=== PATIENT | male | born 1995 | race Caucasian/White ===

== ENCOUNTER 2020-03-21 20:28 | Emergency (ER) | payer BC, SELFPAY ==
[2020-03-21 20:47] VITALS: BP 146/88; PULSE 102; RESP 21; TEMP 37.1; O2SAT 96; BMI 37.5
[2020-03-21 20:53] LABS: UTC Strep Screen (Rapid) Negative (Negative)
--- NOTE | 2020-03-21 20:53 | HMH.EDUTC ---
[facility] [place] Disposition Clinical Impression: Viral upper respiratory infection Disposition: Home, Self-Care Condition on Discharge: Good Instructions: Preventing the Spread of Coronavirus Discharge Instructions, Sore Throat, DI for Headache Additional Instructions: *Monitor Temp, Over the counter Motrin or Tylenol as directed/as needed Tylenol every 4 hours and Motrin every 6 hours (as long as your family doctor has told you that you can take it) for fever or pain. and straight to ER if unable to lower temp less than 101.0 after medication given *Warm salt water gargles may help to soothe the throat *Throat Lozenges *Warm fluids like tea with honey may help to soothe the throat *Sleep elevated *Humidifier/Vaporizer Go home and self quarantine until your test results back and are negative You was given a handout on instructions for quarantine Do not be out in public and no work until negative covid results Your throat swab was sent for culture. Those results are typically sent to your primary care. Be sure to follow up in 2-3 days with your family doctor/primary care physician if no improvement so they can review those result and treat if necessary. If you don?t have a primary care doctor, I recommend you get one but in the mean time, you will have to return to a walk in clinic Follow up IMMEDIATELY for new or worsening symptoms or no Noticeable improvement over the next 48-72 hours. 911 for difficulty breathing or swallowing Call back to the [facility] [place] on Tuesday to see if your results are back Referrals: Provider,Referral, [Primary Care Provider] - As needed Forms: Work/School Release Time of Disposition: 21:01 Medical Decision Making - Saran Inquiry Pt receiving controlled substance: No Saran was queried for this patient: No Vital Signs: 03/21/20 20:47 Temperature 98.7 F Temperature Source Oral Pulse Rate [Right Brachial] 102 H Respiratory Rate 21 Blood Pressure [Right Arm] 146/88 H Blood Pressure Mean [Right Arm] 107 Blood Pressure Source [Right Arm] Automatic Cuff Blood Pressure Position [Right Arm] Sitting 02 Sat by Pulse Oximetry 96 Oxygen Delivery Method Room Air - Lab Data Lab results reviewed: Yes: I reviewed the patient's lab results. Lab Results 03/21/20 20:34: Strep Scn Rapid Clinic Negative Orders (Tests/Meds): ORDERS Category Date Time Status SARS-CoV-2, [place] ([place]) Stat Lab 03/21/20 20:47 Ordered [facility] [place] HPI - General Stated complaint: sore throat and headache/covid test for work Time Seen by Provider: 03/21/20 20:53 Mode of Arrival: Ambulatory Source of Information: Patient Limitations: No Limitations Description of Symptoms (Recalled from Triage Doc. by RN): PATIENT C/O SORE THROAT AND COUGH X 3 DAYS; HIS WORK IS REQUESTING A COVID TEST HEENT Symptoms (Recalled from RN notes): Yes Resp Symptoms (Recalled from RN notes): Yes Skin Symptoms (Recalled from RN notes): No MS Symptoms (Recalled from RN notes): No Functional Status (Recalled from RN notes): WNL - History of Present Illness Provider Complaint: Patient states that he has been having sore throat, cough and drainage along with headache on and off for about 3 days States that he hasnt had fever that he is aware of States that his work sent him to have him get checked for COVID and said he couldnt return to work until he has had a negative test - Related Data Allergies Allergy/AdvReac Type Severity Reaction Status Date / Time No Known Allergies Allergy Verified 09/29/17 19:38 - Worker's Comp Is this a Worker's Comp case?: No [facility] History - Hepatitis A Screen Drug use history?: No High risk sexual behaviors?: No History of sexually transmitted infection?: No Currently employed?: No Childcare worker?: No Do you have indoor plumbing?: Yes Do you have electricity?: Yes Attestation statement:: This patient has been screened for Hepatitis A risk factors. I have reviewed the patient's past medical history:
[2020-03-21 21:07] VITALS: BP 146/88; PULSE 102; RESP 21; TEMP 37.1; O2SAT 96
[2020-03-23 16:10] LABS: Covid-19 Nasal PCR Sendout UK Not Detected
== END 2020-03-21 21:08 | disposition home or self-care (01) ==
PROVIDERS: Emergency Provider Nurse Practitioner
DX: Z20.828 Contact with and (suspected) exposure to other viral communicable diseases (principal); J06.9 Acute upper respiratory infection, unspecified
CPT/HCPCS: 87880; 99202; U0003

== ENCOUNTER 2020-04-28 18:44 | Emergency (ER) | payer BC, SELFPAY ==
[2020-04-28 19:10] VITALS: BMI 38.5
[2020-04-28 19:16] VITALS: BP 126/76; PULSE 90; RESP 20; TEMP 36.8; O2SAT 97; BMI 38.5
[2020-04-28 19:26] LABS: UTC Strep Screen (Rapid) Negative (Negative)
--- NOTE | 2020-04-28 19:40 | HMH.EDUTC ---
[facility] [place] Impression: Viral syndrome Disposition: Home, Self-Care Condition on Discharge: Good Instructions: DI for Viral Syndrome, Preventing the Spread of Coronavirus Discharge Instructions Additional Instructions: Drink plenty of fluids. Take tylenol or ibuprofen for pain or fever. Follow up with your regular doctor. GO TO THE ER FOR ANY WORSENING SYMPTOMS FOLLOW THE DIRECTIONS ON THE COVID-19 HAND OUT THAT WE GAVE YOU REGARDING SELF-ISOLATION UNTIL YOU KNOW YOUR COVID-19 RESULTS Referrals: PCP,No [Primary Care Provider] - Forms: Work/School Release Time of Disposition: 19:50 Medical Decision Making - Medical Records Medical records reviewed: No: I reviewed the patient's medical records. - Saran Inquiry Pt receiving controlled substance: No Vital Signs: 04/28/20 19:16 04/28/20 19:57 Temperature 98.3 F 98.3 F Temperature Source Oral Pulse Rate 90 Pulse Rate [Right Brachial] 90 Respiratory Rate 20 20 Blood Pressure 126/76 Blood Pressure [Right Arm] 126/76 Blood Pressure Mean [Right Arm] 92 Blood Pressure Source [Right Arm] Automatic Cuff Blood Pressure Position [Right Arm] Sitting 02 Sat by Pulse Oximetry 97 Oxygen Delivery Method Room Air - Lab Data Lab Results 04/28/20 19:12: Strep Scn Rapid Clinic Negative Orders (Tests/Meds): ORDERS Category Date Time Status SARS-CoV-2, [place] Stat Lab 04/28/20 19:20 Received Strep Screen Confirmation Stat Micro 04/28/20 19:12 [place] [facility] [place] - General Stated complaint: COVID TEST Time Seen by Provider: 04/28/20 19:40 Mode of Arrival: Ambulatory Source of Information: Patient Limitations: No Limitations Description of Symptoms (Recalled from Triage Doc. by RN): PATIENT C/O SORE THROAT, HEADACHE SINCE TUESDAY. STATES THERE WAS A CONFIRMED COVID CASE AT HIS WORKPLACE AND IS REQUESTING A TEST HEENT Symptoms (Recalled from RN notes): Yes Resp Symptoms (Recalled from RN notes): No Skin Symptoms (Recalled from RN notes): No MS Symptoms (Recalled from RN notes): No Functional Status (Recalled from RN notes): WNL - History of Present Illness Provider Complaint: He states that he started feeling kind of bad yesterday. Since then he has ran a fever up to 99.9. He has had a scratchy throat. He denies any cough, chest pain or shortness of breath. - Related Data Allergies Allergy/AdvReac Type Severity Reaction Status Date / Time No Known Allergies Allergy Verified 09/29/17 19:38 - Worker's Comp Is this a Worker's Comp case?: No [facility] History - Hepatitis A Screen Drug use history?: No High risk sexual behaviors?: No History of sexually transmitted infection?: No Currently employed?: No Childcare worker?: No Do you have indoor plumbing?: Yes Do you have electricity?: Yes Attestation statement:: This patient has been screened for Hepatitis A risk factors. I have reviewed the patient's past medical history: Yes Other Surgeries: Yes: No Previous Surgery - Social History Smoking Status: Never smoker Alcohol Intake: never Occupational Status: other Family Hx:: Cancer ROS Obtained: Yes All systems reviewed & no additional complaints - Constitutional Constitutional: Reports chills, Reports fever(s), Reports poor appetite, Reports malaise - Eyes Eyes: Denies eye discharge - ENT Ears, Nose, Mouth, and Throat: Reports as per HPI - Cardiovascular Cardiovascular: Denies chest pain - Respiratory Respiratory: No chest congestion, Yes cough Physical Exam - General General appearance: alert, in no apparent distress - Head Head exam: atraumatic, normocephalic, normal inspection - Eye Eye exam: Present: normal appearance, PERRL, EOMI - ENT ENT exam: Present: normal exam, normal oropharynx, mucous membranes moist, TM's normal bilaterally, normal external ear exam - Neck Neck exam: Present: normal inspection, full ROM, trachea midline. Absent: meningismus, lymphadenop
[2020-04-28 19:57] VITALS: BP 126/76; PULSE 90; RESP 20; TEMP 36.8; O2SAT 97
[2020-04-30 13:09] LABS: Covid-19 Nasal PCR Sendout Lex Not Detected
== END 2020-04-28 19:58 | disposition home or self-care (01) ==
PROVIDERS: Emergency Provider Nurse Practitioner Family
DX: Z20.828 Contact with and (suspected) exposure to other viral communicable diseases (principal); B34.9 Viral infection, unspecified
CPT/HCPCS: 87880; 99202; U0004

== ENCOUNTER 2020-06-27 13:41 | Emergency (ER) | payer BC, SELFPAY ==
[2020-06-27 14:24] VITALS: BP 132/85; PULSE 99; RESP 18; TEMP 36.7; O2SAT 97; BMI 37.5
--- NOTE | 2020-06-27 14:46 | HMH.EDUTC ---
[facility] [place] Clinical Impression: Viral syndrome Disposition: Home, Self-Care Condition on Discharge: Good Instructions: DI for Viral Syndrome Additional Instructions: Drink plenty of fluids. Take tylenol or ibuprofen for pain or fever. Follow up with your regular doctor. GO TO THE ER FOR ANY WORSENING SYMPTOMS FOLLOW THE DIRECTIONS ON THE COVID-19 HAND OUT THAT WE GAVE YOU REGARDING SELF-ISOLATION UNTIL YOU KNOW YOUR COVID-19 RESULTS Referrals: PCP,No [Primary Care Provider] - Forms: Work/School Release Time of Disposition: 15:02 Medical Decision Making - Medical Records Medical records reviewed: No: I reviewed the patient's medical records. - Saran Inquiry Pt receiving controlled substance: No Vital Signs: 06/27/20 14:24 06/27/20 15:24 Temperature 98.0 F 98.0 F Temperature Source Temporal Artery Scan Oral Pulse Rate 99 H Pulse Rate [Radial] 99 H Respiratory Rate 18 18 Blood Pressure 132/85 Blood Pressure [Right Arm] 132/85 Blood Pressure Mean [Right Arm] 100 Blood Pressure Source Automatic Cuff Blood Pressure Source [Right Arm] Automatic Cuff Blood Pressure Position Sitting Blood Pressure Position [Right Arm] Sitting 02 Sat by Pulse Oximetry 97 Oxygen Delivery Method Room Air Room Air [facility] [place] HPI - General Stated complaint: covid test Time Seen by Provider: 06/27/20 14:46 Mode of Arrival: Ambulatory Source of Information: Patient Limitations: No Limitations Description of Symptoms (Recalled from Triage Doc. by RN): wants covid test. vomiting and diarrhea. HEENT Symptoms (Recalled from RN notes): No Resp Symptoms (Recalled from RN notes): No Skin Symptoms (Recalled from RN notes): No MS Symptoms (Recalled from RN notes): No Functional Status (Recalled from RN notes): wnl - History of Present Illness Provider Complaint: He states that he has been having n/v/d for the past 2 days. His work wants him to have a covid test before he can return. He feels better now. - Related Data Allergies Allergy/AdvReac Type Severity Reaction Status Date / Time No Known Allergies Allergy Verified 09/29/17 19:38 - Worker's Comp Is this a Worker's Comp case?: No [facility] History - Hepatitis A Screen Drug use history?: No High risk sexual behaviors?: No History of sexually transmitted infection?: No Currently employed?: No Childcare worker?: No Do you have indoor plumbing?: Yes Do you have electricity?: Yes Attestation statement:: This patient has been screened for Hepatitis A risk factors. I have reviewed the patient's past medical history: Yes Other Surgeries: Yes: No Previous Surgery - Social History Smoking Status: Never smoker Alcohol Intake: never Occupational Status: employed Family Hx:: Cancer ROS Obtained: Yes All systems reviewed & no additional complaints - Constitutional Constitutional: Denies chills, Denies fever(s) - Eyes Eyes: Denies eye discharge - ENT Ears, Nose, Mouth, and Throat: Denies dizziness, Denies otalgia, Denies sore throat - Cardiovascular Cardiovascular: Denies chest pain Physical Exam - General General appearance: alert, in no apparent distress - Head Head exam: atraumatic, normocephalic, normal inspection - Eye Eye exam: Present: normal appearance, PERRL, EOMI - ENT ENT exam: Present: normal exam, normal oropharynx, mucous membranes moist, TM's normal bilaterally, normal external ear exam - Neck Neck exam: Present: normal inspection, full ROM, trachea midline. Absent: meningismus, lymphadenopathy - Chest Chest inspection: Present: normal inspection, symmetric chest wall rise. Absent: tenderness - Respiratory Respiratory exam: Present: normal lung sounds bilaterally. Absent: respiratory distress - Cardiovascular Cardiovascular exam: Present: regular rate, normal rhythm. Absent: JVD - Abdominal Exam Abdominal exam: Present: soft, normal bowel sounds. Absent: distention, tenderness, guardin
[2020-06-27 15:24] VITALS: BP 132/85; PULSE 99; RESP 18; TEMP 36.7; O2SAT 97
== END 2020-06-27 15:24 | disposition home or self-care (01) ==
PROVIDERS: Emergency Provider Nurse Practitioner Family
DX: B34.9 Viral infection, unspecified (principal); Z20.828 Contact with and (suspected) exposure to other viral communicable diseases
CPT/HCPCS: 99201; U0003

== ENCOUNTER 2020-07-16 15:53 | Emergency (ER) | payer BC, SELFPAY ==
[2020-07-16 16:08] VITALS: BP 158/70; PULSE 118; RESP 18; TEMP 36.7; O2SAT 95; BMI 37.5
--- NOTE | 2020-07-16 16:23 | HMH.EDUTC ---
[facility] [place] Impression: Encounter for laboratory testing for COVID-19 virus Disposition: Home, Self-Care Condition on Discharge: Good Instructions: Preventing the Spread of Coronavirus Discharge Instructions Additional Instructions: *Monitor Temp, Over the counter Motrin or Tylenol as directed/as needed Tylenol every 4 hours and Motrin every 6 hours (as long as your family doctor has told you that you can take it) for fever or pain. and straight to ER if unable to lower temp less than 101.0 after medication given *Warm salt water gargles may help to soothe the throat *Throat Lozenges *Warm fluids like tea with honey may help to soothe the throat *Sleep elevated *Humidifier/Vaporizer Follow up IMMEDIATELY for new or worsening symptoms or no Noticeable improvement over the next 48-72 hours. 911 for difficulty breathing or swallowing You was tested for today for COVID19 your test result should be back later this evening, you may call back later this evening to see if your test results are back and the result You was given a handout with instructions for Self Quarantine and Self isolation for while you wait on test results and what to do if they are positive Referrals: PCP,No [Primary Care Provider] - As needed Forms: Work/School Release Time of Disposition: 16:28 Medical Decision Making - Saran Inquiry Pt receiving controlled substance: No Saran was queried for this patient: No Vital Signs: 07/16/20 16:08 Temperature 98.0 F Temperature Source Oral Pulse Rate [Radial] 118 H Respiratory Rate 18 Blood Pressure [Right Arm] 158/70 H Blood Pressure Mean [Right Arm] 99 Blood Pressure Source [Right Arm] Automatic Cuff Blood Pressure Position [Right Arm] Sitting 02 Sat by Pulse Oximetry 95 Oxygen Delivery Method Room Air Orders (Tests/Meds): ORDERS Category Date Time Status Covid-19 Nasal PCR ([facility]) Routine Lab 07/16/20 16:05 Received [facility] [place]PI - General Stated complaint: COVID Testing Time Seen by Provider: 07/16/20 16:24 Mode of Arrival: Ambulatory Source of Information: Patient Limitations: No Limitations Description of Symptoms (Recalled from Triage Doc. by RN): exposed to covid at work. 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 so his work told him that he has to come in and get checked for COVID state that he isnt having any symptoms just a runny nose but has seasonal allergies - Related Data Allergies Allergy/AdvReac Type Severity Reaction Status Date / Time No Known Allergies Allergy Verified 09/29/17 19:38 - Worker's Comp Is this a Worker's Comp case?: No [facility] History - Hepatitis A Screen Drug use history?: No High risk sexual behaviors?: No History of sexually transmitted infection?: No Currently employed?: No Childcare worker?: No Do you have indoor plumbing?: Yes Do you have electricity?: Yes Attestation statement:: This patient has been screened for Hepatitis A risk factors. I have reviewed the patient's past medical history: Yes Other Surgeries: Yes: No Previous Surgery - Social History Smoking Status: Never smoker Alcohol Intake: never Occupational Status: employed Housing: house Family Hx:: Cancer ROS Obtained: Yes All systems reviewed & no additional complaints, Yes Systems reviewed as appropriate & no additional complaints - Constitutional Constitutional: Reports system reviewed and no additional complaints, except as docu, Denies body ache, Denies chills, Denies fever(s), Denies headache(s) - ENT Ears, Nose, Mouth, and Throat: Reports system reviewed and no additional complaints, except as docu, Denies
[2020-07-16 16:31] VITALS: BP 158/70; PULSE 118; RESP 18; TEMP 36.7; O2SAT 95
== END 2020-07-16 16:32 | disposition home or self-care (01) ==
PROVIDERS: Emergency Provider Nurse Practitioner
DX: Z20.828 Contact with and (suspected) exposure to other viral communicable diseases (principal)
CPT/HCPCS: 99201; U0003

== ENCOUNTER 2020-07-27 12:54 | Emergency (ER) | payer BC, SELFPAY ==
[2020-07-27 13:05] VITALS: BP 153/86; PULSE 78; RESP 18; TEMP 36.9; O2SAT 98; BMI 38.6
--- NOTE | 2020-07-27 13:10 | HMH.EDUTC ---
[facility] [place] Impression: Encounter for laboratory testing for COVID-19 virus Disposition: Home, Self-Care Condition on Discharge: Good Instructions: Preventing the Spread of Coronavirus Discharge Instructions Additional Instructions: *Monitor Temp, Over the counter Motrin or Tylenol as directed/as needed Tylenol every 4 hours and Motrin every 6 hours (as long as your family doctor has told you that you can take it) for fever or pain. and straight to ER if unable to lower temp less than 101.0 after medication given *Warm salt water gargles may help to soothe the throat *Throat Lozenges *Warm fluids like tea with honey may help to soothe the throat *Sleep elevated *Humidifier/Vaporizer Follow up IMMEDIATELY for new or worsening symptoms or no Noticeable improvement over the next 48-72 hours. 911 for difficulty breathing or swallowing You was tested for today for COVID19 your test result should be back later this evening, you may call back later this evening to see if your test results are back and the result You was given a handout with instructions for Self Quarantine and Self isolation for while you wait on test results and what to do if they are positive Referrals: PCP,No [Primary Care Provider] - As needed Forms: Work/School Release Time of Disposition: 13:13 Medical Decision Making - Saran Inquiry Pt receiving controlled substance: No Saran was queried for this patient: No Vital Signs: 07/27/20 13:05 Temperature 98.4 F Temperature Source Oral Pulse Rate [Radial] 78 Respiratory Rate 18 Blood Pressure [Right Arm] 153/86 H Blood Pressure Mean [Right Arm] 108 Blood Pressure Source [Right Arm] Automatic Cuff Blood Pressure Position [Right Arm] Sitting 02 Sat by Pulse Oximetry 98 Oxygen Delivery Method Room Air Orders (Tests/Meds): ORDERS Category Date Time Status Covid-19 Nasal PCR ([facility]) Routine Lab 07/27/20 13:02 Ordered [facility] [place]PI - General Stated complaint: covid test Time Seen by Provider: 07/27/20 13:10 Mode of Arrival: Ambulatory Source of Information: Patient Limitations: No Limitations Description of Symptoms (Recalled from Triage Doc. by RN): covid test HEENT Symptoms (Recalled from RN notes): No Resp Symptoms (Recalled from RN notes): No Skin Symptoms (Recalled from RN notes): No MS Symptoms (Recalled from RN notes): No Functional Status (Recalled from RN notes): wnl - History of Present Illness Provider Complaint: Patient states that at his job he works closely with other people and another of his coworkers that he has worked beside tested positive for COVID States that his work called and told him that he has to come in again and get tested Denies any symptoms - Related Data Allergies Allergy/AdvReac Type Severity Reaction Status Date / Time No Known Allergies Allergy Verified 09/29/17 19:38 - Worker's Comp Is this a Worker's Comp case?: No [facility] History - Hepatitis A Screen Drug use history?: No High risk sexual behaviors?: No History of sexually transmitted infection?: No Currently employed?: No Childcare worker?: No Do you have indoor plumbing?: Yes Do you have electricity?: Yes Attestation statement:: This patient has been screened for Hepatitis A risk factors. I have reviewed the patient's past medical history: Yes Other Surgeries: Yes: No Previous Surgery - Social History Smoking Status: Never smoker Alcohol Intake: never Occupational Status: employed Housing: house Family Hx:: Cancer ROS Obtained: Yes All systems reviewed & no additional complaints, Yes Systems reviewed as appropriate & no additional complaints - Constitutional Constitutional: Denies body ache, Denies chills, Denies fever(s), Denies headache(s) - ENT Ears, Nose, Mouth, and Throat: Reports system reviewed and no additional complaints, except as docu - Cardiovascular Cardiovascular: Reports system reviewed and no additional complaints, except as docu -
[2020-07-27 13:21] VITALS: BP 153/86; PULSE 78; RESP 18; TEMP 36.9; O2SAT 98
== END 2020-07-27 13:22 | disposition home or self-care (01) ==
PROVIDERS: Emergency Provider Nurse Practitioner
DX: Z20.828 Contact with and (suspected) exposure to other viral communicable diseases (principal)
CPT/HCPCS: 99201; U0003

== ENCOUNTER 2024-03-06 09:20 | Emergency (ER) | payer BC, SELFPAY ==
[2024-03-06 09:25] VITALS: BP 157/105; O2SAT 97
[2024-03-06 09:26] VITALS: BP 157/105; PULSE 129; RESP 18; O2SAT 93; BMI 37.5
[2024-03-06 09:30] VITALS: BP 154/111; PULSE 106; O2SAT 94
--- NOTE | 2024-03-06 09:41 | HMH.EDGENADL ---
Discharge Plan Disposition Patient Disposition: Home, Self-Care Referrals Follow up/Referrals: Say Latham MD [Staff Physician] - See instructions Provider,MD Lauryn [Primary Care Provider] - See instructions Dannie Steven MD [Physician] - See instructions Activity Restrictions/Add. Instructions Additional Instructions/Restrictions: There is no evidence on CT scan of any aspirated foreign body. This was reviewed with our bindery production manager and he may follow-up with him in 2 to 3 months. If he continued to be symptomatic I would recommend he follow-up with our general surgeon for an outpatient endoscopy for evaluation of esophageal pathology which could be associated with her symptoms. Clinical Impressions Clinical Impression: Aspiration of foreign body Instructions Patient Instructions: DI for Skin Abscess Discharge ED Provider: Gabriela Holly General Adult HPI General Chief complaint: Skin/Abscess/Foreign Body Stated complaint: aspurated pill stuck in throat Time Seen by Provider: 03/06/24 09:24 Mode of Arrival: Ambulatory Source of Information: Patient Limitations: No Limitations Description of Symptoms (Recalled from ER Triage Doc. by RN): Patient reports he has an aspirin lodged in his throat. History of Present Illness HPI narrative: Is a 28-year-old male presenting today with I think I aspirated a pill. States that he was trying to swallow by her milligram acetaminophen tablets when he suddenly inhaled and felt as if it went into his airway. Since that time he has been coughing and states that it does feel like it is moving when he coughs but feels like it gets stuck at the upper portion of his airway at which point he gags. He has been able to swallow without any difficulty has no problems with secretions. He is not in any type of respiratory distress from historical standpoint. Related Data Allergies Allergy/AdvReac Type Severity Reaction Status Date / Time No Known Allergies Allergy Verified 03/06/24 09:29 [facility] Disclaimer: The information contained in this section may have been updated after the patient was seen, as this information can be updated by other users. Social History Smoking Status: Current every day smoker alcohol intake: never current occupational status: employed Travel in the last 8 weeks: None housing: house ROS Obtained: Yes All systems reviewed & no additional complaints except as documented Physical Exam General General appearance: alert and in no apparent distress Respiratory Respiratory exam: Present normal lung sounds bilaterally and other (Actively coughing); Absent respiratory distress Cardiovascular Cardiovascular exam: Present regular rate and normal rhythm Neurological Exam Neurological exam: Present alert and oriented X3 Medical Decision Making Saran Inquiry Pt receiving controlled substance: No Vital Signs: 03/06/24 09:25 03/06/24 09:26 03/06/24 09:30 Pulse Rate 106 H Pulse Rate [Right Brachial] 129 H Respiratory Rate 18 Blood Pressure 157/105 H 154/111 H Blood Pressure [Right Arm] 157/105 H Blood Pressure Mean 118 126 Blood Pressure Mean [Right Arm] 122 Blood Pressure Source [Right Arm] Automatic Cuff Blood Pressure Position [Right Arm] Sitting 02 Sat by Pulse Oximetry 97 93 L 94 L Oxygen Delivery Method Room Air Orders (Tests/Meds): ORDERS Category Date Time Status CT chest wo con Stat Cat Scan 03/06/24 11:01 Taken CXR 2 view (NOT portable) [XR chest 2V] Stat Exams 03/06/24 11:07 Stop Req Medical Decision Narrative: Patient is a 28-year-old in no respiratory distress. Symptomatic presenting today with concern for aspiration of a Tylenol tablet. Does not appear to be gastrointestinal in nature we will discuss the case with our bindery production manager and will reassess. After discussing the case with our bindery production manager he wanted a CT scan to see if there is any foreign body noted in the airways which we were able to get myself and Dr. Steven reviewed the images and we do not see any foreign body therefore the patient is stable to follow-up outpatient to 3 months. It is possible that this dissolved and he coughed it out and there is some residual inflammatory changes making him continue to be symptomatic. Unlikely that this is radiolucent. It is also possible that this was GI in nature he does not have any evidence of a complete obstruction as stated above has been given referral information for our bindery production manager in our GI doctor for a scope potentially and return precautions specifically regarding pneumonitis/pneumonia. He was discharged in stable condition. Critical Care Critical Care Time Critical Care Time: No
--- NOTE | 2024-03-06 10:53 | PC.NURSE ---
rounded on pt, pt requested ice water and phone tank charger. no other needs at this time.
--- NOTE | 2024-03-06 10:55 | PC.NURSE ---
Dr. Steven at BS for pt eval
--- NOTE | 2024-03-06 11:01 | CT_ITS ---
FINAL REPORT TECHNIQUE: Axial CT images were performed from the lung apices through the upper abdomen. Coronal reformats were submitted. This study was performed with techniques to keep radiation doses as low as reasonably achievable (ALARA). Individualized dose reduction techniques using automated exposure control or adjustment of mA and/or kV according to the patient's size were employed. CLINICAL HISTORY: possible pill aspiration FINDINGS: There is no axillary adenopathy. There is no hilar or mediastinal mass or adenopathy. Heart size is normal. There is no pericardial or pleural effusion. Limited images of the upper abdomen are unremarkable. No suspicious infiltrate or nodule is identified on lung window images. No foreign body is identified. IMPRESSION: No acute process. Reviewed, Interpreted and Dictated by Say Mohamud III, MD Transcribed by Melissa Breen Authenticated and [facility]
--- NOTE | 2024-03-06 11:01 | PC.NURSE ---
DR LANDAVERDE AT BEDSIDE
--- NOTE | 2024-03-06 11:02 | P.CONS_ITS ---
History of Present Illness History of present illness: Mr. Gonzales is a 28-year-old male no significant prior respiratory, presented to the ER complaining of Tylenol aspiration earlier this morning around 8 AM. [facility] Disclaimer: The information contained in this section may have been updated after the patient was seen, as this information can be updated by other users. Social History Smoking Status: Current every day smoker alcohol intake: never current occupational status: employed Travel in the last 8 weeks: None housing: house Review of Systems Constitutional Constitutional: Denies anorexia, Denies body ache(s) and Denies fatigue Eyes Eyes: Denies eye discharge, Denies dry eyes, Denies irritation and Denies itchy eyes ENT Ears, Nose, Mouth, and Throat: Denies epistaxis, Denies facial pain, Denies lip swelling and Denies throat swelling *Cardiovascular Cardiovascular: Denies dyspnea and Denies dyspnea on exertion *Respiratory Respiratory: Denies chest congestion, Reports cough, Denies dyspnea, Denies dyspnea on exertion, Denies excessive phlegm production and Denies wheezing *Gastrointestinal Gastrointestinal: Denies abdominal pain, Denies belching and Denies cramping *Musculoskeletal Musculoskeletal: Reports back pain, Reports myalgias and Reports other (No small joint swelling or Pain) Psychiatric Psychiatric: Denies homicidal ideation and Denies suicidal ideation Endocrine Endocrine: Denies fatigue and Denies heat intolerance Hematologic/Lymphatic Hematologic/Lymphatic: Denies easy bleeding and Denies lymphadenopathy Allergic/Immunologic Allergic/Immunologic: Denies itchy eyes, Denies lip swelling, Denies throat swel ling and Denies wheezing Pulmonology Exam Inpatient Vital signs and Labs for Last 24 Hours: Pulse Resp BP Pulse Ox O2 Del Method 106 H 18 154/111 H 94 L Room Air 03/06/24 09:30 03/06/24 09:26 03/06/24 09:30 03/06/24 09:30 03/06/24 09:26 I & O for Labs for Last 24 Hours: Intake & Output 03/03/24 03/04/24 03/05/24 03/06/24 23:59 23:59 23:59 23:59 Weight 300 lb Constitutional: Present mild distress Head: Present normocephalic and atraumatic ENT: Present normal exam, normal oropharynx and mucous membranes moist Neck: Present normal inspection and full ROM Respiratory: Present CTA bilaterally, normal respiratory effort and able to speak in complete sentences; Absent prolonged expiratory phase, respiratory distress, wheezes, crackles or diminished air movement Cardiac: Present S1/S2, Tachycardia and radial pulses present GI: Present soft and distention; Absent tenderness or guarding Skin: Present intact; Absent cyanosis or jaundice Neuro: Present alert, awake and oriented x 3 Extremities: Present normal inspection; Absent clubbing or cyanosis Psychiatric: Present normal affect and cooperative Meds Home Medications and Allergies New Prescriptions to Start Prescriptions: Allergies Allergy/AdvReac Type Severity Reaction Status Date / Time No Known Allergies Allergy Verified 03/06/24 09:29 Assessment and Plan *Assessment and plan (1) Aspiration of foreign body: Status: Acute Category: Medical Code(s): T17.908A - Unspecified foreign body in respiratory tract, part unspecified causing other injury, initial encounter Plan Mr. Gonzales is a 28-year-old male no significant prior respiratory, presented to the ER complaining of Tylenol aspiration earlier this morning around 8 AM. Patient denies any significant respiratory distress. Chest bilateral clear to auscultate. No significant wheezing. Bilateral clear and even breath sounds. Patient still continued to cough however unable to cough the pill out. It is unclear with the pill is still in his airway or in his esophagus at this point of time. Given the deleterious consequences if the pill was to be in his airway dand patient unable to cough, the plan was made to proceed with a CT chest without contrast to further determine the need for bronchoscopy and foreign body removal at this point of time. Explained the patient in detail regarding the possible outcomes and consequences and patient agreed to proceed with a CT chest without contrast. Follow-up with CT chest without contrast
--- NOTE | 2024-03-06 11:29 | PC.NURSE ---
DR LEE AT BEDSIDE TO UPDATE PT AND FAMILY
[2024-03-06 11:37] VITALS: BP 163/105; PULSE 103; RESP 18; TEMP 36.6; O2SAT 98
== END 2024-03-06 11:42 | disposition home or self-care (01) ==
PROVIDERS: Emergency Provider Student in an Organized Health Care Education/Training Program
DX: T17.908A Unspecified foreign body in respiratory tract, part unspecified causing other injury, initial encounter (principal); R05.9 Cough, unspecified; F17.210 Nicotine dependence, cigarettes, uncomplicated; W44.8XXA Other foreign body entering into or through a natural orifice, initial encounter
CPT/HCPCS: 71250; 99284